=== PATIENT | male | born 1950 | race Caucasian/White ===

== ENCOUNTER 2025-01-18 11:10 | Emergency (ER) | payer OTHER, MEDICAID ==
[2025-01-18] MEDS ORDERED: Rabies Vaccine Human 2.5 UNITS VIAL ONE (13:20)
[2025-01-18 13:24] LABS: #Basophils 0.04 10x3/uL (0.0-0.2); #Eosinophils 0.27 10x3/uL (0.0-0.7); #Monocytes 0.74 10x3/uL (0.11-0.59); #Neutrophils 4.01 10x3/uL (1.40-6.50); %Basophils 0.6 % (0.0-1.0); %Eosinophils 4.3 % (0.0-10.0); %Lymphocytes 19.7 % (21.0-51.0); %Monocytes 11.7 % (0.0-10.0); %Neutrophils 63.5 % (42.0-75.0); Hematocrit 39.8 % (42.0-52.0); Hemoglobin 13.1 g/dL (14.0-18.0); Mean Corpuscular Hemoglobin 31.3 pg (27.0-31.0); Mean Corpuscular Volume 95.2 fL (78.0-98.0); Platelet Count 236 10x3/uL (130-400); Red Blood Cell (RBC) Count 4.18 mill/uL (4.70-6.10); White Blood Cell (WBC) Count 6.31 10x3/uL (4.8-10.8)
[2025-01-18 13:55] LABS: Acetaminophen Less than 10 mcg/mL (Less than 10); Salicylate Less than 8.0 mg/dL (Less than 8.0)
[2025-01-18 13:56] LABS: ALT (SGPT) 9 U/L (Less than 45); AST (SGOT) 22 U/L (11-34); Albumin 3.6 g/dL (3.1-4.5); Alkaline Phosphatase 49 U/L (40-110); Anion Gap 16 mmol/L (10-20); BUN (Urea Nitrogen) 19 mg/dL (8.4-25.7); Bilirubin, Total 0.3 mg/dL (0.3-1.2); Calc. Creatinine Clearance 0 mL/min (70-130); Calcium 9.0 mg/dL (7.8-10.44); Carbon Dioxide 21 mmol/L (23-31); Chloride 108 mmol/L (98-107); Globulin 3.2 g/dL (2.4-3.5); Glucose 85 mg/dL (83-110); Potassium 3.9 mmol/L (3.5-5.1); Sodium 141 mmol/L (136-145)
== END 2025-01-18 14:38 | disposition home or self-care (01) ==
LOC: ERS 11:10
DX: S91.351A Open bite, right foot, initial encounter (principal); Z23 Encounter for immunization; Z55.6 Problems related to health literacy; F17.210 Nicotine dependence, cigarettes, uncomplicated; W54.0XXA Bitten by dog, initial encounter
CPT/HCPCS: 70450; 80053; 80307; 85025; 90471; 90472; 90675; 90715; 93005

== ENCOUNTER → 2025-01-22 | Day surgery (SDC) | payer OTHER, MEDICAID ==
[~2025-01-22] MED LIST: Rabies Vaccine Human 2.5 UNITS VIAL ONE
== END ==
LOC: ER/OP 11:20
PROVIDERS: ATTEND Emergency Medicine
DX: Z29.14 Encounter for prophylactic rabies immune globulin (principal)
CPT/HCPCS: 90675

== ENCOUNTER 2025-01-24 07:42 | Emergency (ER) | payer OTHER, MEDICAID | END 2025-01-24 09:44 | disposition home or self-care (01) | LOC: ERS 07:42 | DX: L03.115 Cellulitis of right lower limb (principal); F17.210 Nicotine dependence, cigarettes, uncomplicated | CPT/HCPCS: 99282 ==